=== PATIENT | female | born 1955 | race Caucasian/White ===

== ENCOUNTER → 2020-07-06 | Outpatient (CLI) | payer OTHER, SELFPAY ==
[~2020-07-06] MED LIST: ADAL40PE2 SC; BUPR150T13 PO; ESCI20TA10 PO; GABA300C PO; HYDR-3245 PO; LEVO75TA PO; METH750T2 PO; PRED10TA PO; TRAM50TA2 PO; TRAZ50TA66 PO
[2020-07-06 10:46] LABS: BASOPHILS # (AUTO) 0.04 x10^3/uL (0-0.1); BASOPHILS % (AUTO) 0 % (0-1); EOSINOPHILS # (AUTO) 0.02 x10^3/uL (0-0.4); EOSINOPHILS % (AUTO) 0 % (1-7); LYMPHOCYTES # (AUTO) 1.54 x10^3/uL (1-3.4); LYMPHOCYTES % (AUTO) 16 % (22-44); MD NO; MEAN CORPUSCULAR HEMOGLOBIN 32.7 pg (27.0-34.8); MEAN CORPUSCULAR HGB CONC 32.8 g/dL (32.4-35.8); MONOCYTES # (AUTO) 0.61 x10^3/uL (0.2-0.8); MONOCYTES % (AUTO) 6 % (2-9); NEUTROPHILS # (AUTO) 7.45 x10^3/uL (1.8-6.8); NEUTROPHILS % (AUTO) 77 % (42-75); PLATELET COUNT 315 x10^3/uL (130-400); RED BLOOD COUNT 4.23 x10^6/uL (3.82-5.3); RED CELL DISTRIBUTION WIDTH 14.3 % (9.6-15.2)
[2020-07-06 10:52] LABS: INTERNATIONAL NORMALIZED RATIO 0.95 (0.93-1.1); PROTHROMBIN TIME 9.8 Seconds (9.6-11.5)
[2020-07-06 10:54] LABS: ANION GAP 4 mmol/L (5-15); CALCIUM 9.6 mg/dL (8.5-10.1); CHLORIDE 109 mmol/L (98-107)
[2020-07-06 10:55] LABS: CREATININE 0.87 mg/dL (0.55-1.02)
== END | disposition home or self-care (01) ==
LOC: STAR 08:54
PROVIDERS: ATTEND Neurological Surgery
DX: Z01.812 Encounter for preprocedural laboratory examination (principal); M48.062 Spinal stenosis, lumbar region with neurogenic claudication; Z20.828 Contact with and (suspected) exposure to other viral communicable diseases
CPT/HCPCS: 36415; 71046; 80048; 85025; 85610; 85730; 87635; 93005

== ENCOUNTER 2020-07-10 08:57 | Day surgery (SDC) | payer OTHER ==
[~2020-07-10] VITALS: Ht 165.1 cm; Wt 54.0 kg
[2020-07-10] MEDS ORDERED: LACTATED RINGERS 1,000 ML IV SCH (09:22)
[2020-07-10] MEDS ORDERED: CHLORHEXIDINE 15 ML UDC MM ONE (09:30)
[2020-07-10] MEDS ORDERED: BACITRACIN 50,000 UNIT ONE (11:30)
[2020-07-10] MEDS ORDERED: BUPIVACAINE/EPI 0.5% 1:200K ONE (11:30)
[2020-07-10] MEDS ORDERED: FENTANYL PF 100 MCG/2ML ONE ×2 (11:46→13:53)
[2020-07-10] MEDS ORDERED: MIDAZOLAM 1 MG/ML, 2ML ONE (11:46)
[2020-07-10] MEDS ORDERED: SUGAMMADEX 200 MG/2 ML IVPush ONE (12:03)
[2020-07-10] MEDS ORDERED: LIDOCAINE 2%, 20ML ONE (12:03)
[2020-07-10] MEDS ORDERED: PHENYLEPHRINE 10 MG/ML ONE (12:03)
[2020-07-10] MEDS ORDERED: HYDROcodone/APAP 7.5-325MG/15ML UDC PO PRN (13:00)
[2020-07-10] MEDS ORDERED: MEPERIDINE/PF 25MG/0.5ML IVPush PRN (13:00)
[2020-07-10] MEDS ORDERED: OXYcodone 5 MG/5 ML ORAL.SOL UDC PO PRN (13:00)
[2020-07-10] MEDS ORDERED: METHOCARBAMOL 1,000 MG in DEXTROSE 5% 100 ML IV PRN (13:00)
[2020-07-10] MEDS ORDERED: PROMETHAZINE 25 MG/ML, 1ML IVPush PRN (13:00)
[2020-07-10] MEDS ORDERED: NEOSTIGMINE 1 MG/ML, 10ML ONE (13:05)
[2020-07-10] MEDS ORDERED: CEFAZOLIN 1,000 MG ONE (13:05)
[2020-07-10] MEDS ORDERED: ONDANSETRON 2MG/ML, 2ML ONE (13:05)
[2020-07-10] MEDS ORDERED: PROPOFOL 10 MG/ML, 20ML ONE (13:05)
[2020-07-10] MEDS ORDERED: ROCURONIUM 10MG/ML,5ML ONE (13:05)
[2020-07-10] MEDS ORDERED: SUCCINYLCHOLINE 20 MG/ML, 10ML ONE (13:05)
[2020-07-10] MEDS ORDERED: GLYCOPYRROLATE 0.2MG/1ML, 5ML ONE (13:05)
[2020-07-10] MEDS ORDERED: DEXAMETHASONE 4 MG/ML, 1ML ONE (13:05)
[2020-07-10] MEDS: FENTANYL PF 100 MCG/2ML IV PRN ×2 (13:33→13:58)
[2020-07-10] MEDS ORDERED: OXYcodone 5 MG/5 ML ORAL.SOL UDC ONE (13:44)
[2020-07-10] MEDS ORDERED: HYDROmorphone 1 MG/ML, 1ML INJ ONE (14:05)
[2020-07-10] MEDS: HYDROmorphone 1 MG/ML, 1ML INJ IVPush PRN ×2 (14:06→14:18)
== END 2020-07-10 17:30 | disposition home or self-care (01) ==
LOC: OUT 08:57
PROVIDERS: ATTEND Neurological Surgery
DX: M48.062 Spinal stenosis, lumbar region with neurogenic claudication (principal); M47.27 Other spondylosis with radiculopathy, lumbosacral region; F41.8 Other specified anxiety disorders; G47.00 Insomnia, unspecified; M19.90 Unspecified osteoarthritis, unspecified site; E07.9 Disorder of thyroid, unspecified; Z79.4 Long term (current) use of insulin; Z79.890 Hormone replacement therapy; Z79.891 Long term (current) use of opiate analgesic; Z79.899 Other long term (current) drug therapy; Z87.891 Personal history of nicotine dependence; Z88.0 Allergy status to penicillin; Z88.2 Allergy status to sulfonamides; Z90.49 Acquired absence of other specified parts of digestive tract; Z96.642 Presence of left artificial hip joint; Z98.890 Other specified postprocedural states; Z82.61 Family history of arthritis; Z80.9 Family history of malignant neoplasm, unspecified
CPT/HCPCS: 63047; 63048; 72100; J0330; J0690; J1100; J1170; J2250; J2370; J2405; J2704; J2710; J2800; J3010; J7120

== ENCOUNTER 2021-03-08 16:27 | Emergency (ER) | payer OTHER ==
[~2021-03-08] VITALS: Ht 162.6 cm; Wt 54.5 kg
[~2021-03-08 16:27] MED LIST changes: -HYDR-3245 PO; +HYDR1TAB53 PO; +METH-640 PO; -METH750T2 PO
--- NOTE | 2021-03-08 17:53 | NUR ---
FELL YESTERDAY, RIGHT FACIAL BRUISE, RIGHT WRIST, CHEST , AND LEFT KNEE PAIN. -LOC. DR. GARCIA TO BEDSIDE FOR EVALUATION. PT ATTACHED TO MONITORS. VSS. NADN. BREAH SOUNDS EQUAL ON BOTH SIDES. NO SOB.
[2021-03-08 19:36] VITALS: BP 144/81
--- NOTE | 2021-03-08 19:37 | NUR ---
Patient given discharge instructions and they have confirmed that they understand the instructions. Patient ambulatory with steady gait.
== END 2021-03-08 19:38 | disposition home or self-care (01) ==
LOC: ED 17:46
DX: S22.31XA Fracture of one rib, right side, initial encounter for closed fracture (principal); S60.221A Contusion of right hand, initial encounter; R07.89 Other chest pain; R51.9 Headache, unspecified; Z87.891 Personal history of nicotine dependence; X58.XXXA Exposure to other specified factors, initial encounter; Y93.89 Activity, other specified; Y92.89 Other specified places as the place of occurrence of the external cause; Y99.8 Other external cause status
CPT/HCPCS: 99284